=== PATIENT | female | born 1985 | race African-American/Black ===

== ENCOUNTER 2016-08-16 14:52 | Emergency (ER) | payer BC, OTHER ==
[~2016-08-16] VITALS: Ht 167.6 cm; Wt 60.0 kg
[~2016-08-16 14:52] MED LIST: FERR325C PO; QUIN5TAB15 PO
[2016-08-16 14:54] VITALS: Ht 167.6 cm; Wt 60.0 kg
[2016-08-16] MEDS ORDERED: SOD CHLORIDE 0.9% 1,000 ML IV STA (15:14)
--- NOTE | 2016-08-16 15:18 | ERD ---
ER Documentation Chief Complaint Date/Time DATE: 08/16/16 TIME: 15:17 Chief Complaint C/O [facility] LIGHT SENSITIVE HPI 30-year-old female complains of headache, dizziness that started around 8 AM this morning. Patient states that she was walking and then she had a throbbing headache that started suddenly it is diffuse in the frontal aspect, throbbing with photophobia. She has never had this headache before. She denies any blurry vision, nausea, vomiting. She denies any head trauma. No fevers or chills or neck stiffness. ROS All systems reviewed and are negative except as per history of present illness. Medications Home Meds Active Scripts Naproxen* (Naprosyn*) 500 Mg Tablet, 500 MG PO BID Y for PAIN AND/OR INFLAMMATION, #30 TAB Prov:KORI SHIELDS PA-C 08/16/16 Reported Medications Ferrous Sulfate (Iron) 325 Mg Capsr, 325 MG PO DAILY 08/31/15 Quinapril Hcl (Quinapril Hcl) 5 Mg Tablet, 5 MG PO DAILY, #60 TAB 08/31/15 Allergies Allergies: Coded Allergies: No Known Allergy (Unverified , 07/14/15) PMhx/Soc History of Surgery: Yes (APPY 2011) Anesthesia Reaction: No Hx Neurological Disorder: No Hx Respiratory Disorders: No Hx Cardiac Disorders: Yes (HTN, MITRAL VALVE PROLAPSE) Hx Psychiatric Problems: No Hx Miscellaneous Medical Probl: Yes (OVARIAN CYSTS) Hx Alcohol Use: Yes (OCC) Hx Substance Use: No Hx Tobacco Use: No Smoking Status: Never smoker Physical Exam Vitals Vital Signs Date Time Temp Pulse Resp B/P Pulse Ox O2 Delivery O2 Flow Rate FiO2 08/16/16 14:54 98.6 70 19 129/86 100 Physical Exam General: Well-developed, well-nourished. The patient appears in no acute distress. HEENT: Head is normocephalic, atraumatic. No scleral icterus. Pupils are equal , round, and reactive. Oral mucous membranes are moist. No pharyngeal erythema. Neck: Supple. Nontender. Lungs: Clear to auscultation. Normal air movement. Heart: Regular rate and rhythm. S1 and S2 are normal. No murmurs, gallops, or rubs. Abdomen: Soft, nontender, nondistended. Bowel sounds are normoactive. Extremities: No clubbing or cyanosis. Normal pulses. Moving extremities x 4. No weakness. Neurologic: Alert and oriented 3. No focal deficits. Skin: Normal turgor. No rash or lesions. Result Diagram: 08/16/16 1535 08/16/16 1535 Results 24 hrs Laboratory Tests Test 08/16/16 15:35 White Blood Count 6.710^3/ul Red Blood Count 4.7010^6/ul Hemoglobin 11.1g/dl Hematocrit 36.8% Mean Corpuscular Volume 78.3fl Mean Corpuscular Hemoglobin 23.6pg Mean Corpuscular Hemoglobin Concent 30.2g/dl Red Cell Distribution Width 15.9% Platelet Count 90373^3/UL Mean Platelet Volume 11.2fl Neutrophils % 73.5% Lymphocytes % 20.3% Monocytes % 5.5% Eosinophils % 0.3% Basophils % 0.3% Nucleated Red Blood Cells % 0.0/100WBC Neutrophils # 5.010^3/ul Lymphocytes # 1.410^3/ul Monocytes # 0.410^3/ul Eosinophils # 0.010^3/ul Basophils # 0.010^3/ul Nucleated Red Blood Cells # 0.010^3/ul Urine Color LT. YELLOW Urine Clarity CLEAR Urine pH 6.0 Urine Specific [place] 1.020 Urine Ketones 40 Urine Nitrite NEGATIVE Urine Bilirubin NEGATIVE Urine Urobilinogen 0.2 E.U./dL Urine Leukocyte Esterase NEGATIVE Urine Hemoglobin NEGATIVE Urine Glucose NEGATIVE% Urine Total Protein NEGATIVE Urine Test NEGATIVE Sodium Level 139mmol/L Potassium Level 3.5mmol/L Chloride Level 104mmol/L Carbon Dioxide Level 23mmol/L Anion Gap 16 Blood Urea Nitrogen 13mg/dl Creatinine 0.78mg/dl Glucose Level 73mg/dl Calcium Level 8.8mg/dl Total Bilirubin 0.4mg/dl Direct Bilirubin 0.00mg/dl Indirect Bilirubin 0.4mg/dl Aspartate Amino Transf (AST/SGOT) 24IU/L Alanine Aminotransferase (ALT/SGPT) 24IU/L Alkaline Phosphatase 65IU/L Total Protein 7.4g/dl Albumin 3.9g/dl Globulin 3.50g/dl Albumin/Globulin Ratio 1.11 Lipase 63U/L Current Medications Medications (Trade) Dose Ordered Sig/[place] Route PRN Reason Start Time Stop Time Status Last Admin Dose Admin Sodium Chloride (NS) 1,000 ml @ 1,000 mls/hr Q1H STAT IV 08/16/16 15:14 08/16/16 16:13 DC 08/16/16 15:34 Acetaminophen (Tylenol Tab) 650 mg ONCE ONCE PO 08/16/16 15:30 08/16/16 15:31 DC 08/16/16 15:33 Procedures/MDM ED course: IV line was established, blood and urine were obtained. She was given a fluid bolus of normal saline 1 L. She was given Tylenol 650 mg for pain. 12-lead EKG(interpreted by supervising physician): Dr. Morris Rate/Rhythm: Normal Sinus Rhythm, rate of 81 QRS, ST, T-waves: No changes consistent w/ acute ischemia, no intervals, no dysrhythmias, no ectopy Impression: No evidence of ischemia or arrhythmia MDM: 22-year-old female comes in with headache, dizziness, patient's workup including labs, EKG and CT scan of the head. Patient's labs look unremarkable, there is mild anemia, otherwise unremarkable. Patient's was negative and there is no evidence of urinary tract infection. EKG shows normal sinus rhythm. She was given a liter of fluids and Tylenol and states that she is feeling much better at this time. I really doubt subarachnoid hemorrhage. 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 I suspect a migraine headache versus atypical migraine, versus complex migraine. She was asked to continue Tylenol, she will also be given Naprosyn for pain at home. Departure Diagnosis: Primary Impression: Headache Condition: KORI Marroquin PA-C August 16, 2016 15:17
[2016-08-16] MEDS ORDERED: ACETAMINOPHEN 325 MG TAB PO ONE (15:30)
[2016-08-16 15:45] LABS: ADD SCAN DIFF NO
[2016-08-16 15:47] LABS: BASOPHILS % 0.3 % (0.0-2.0); EOSINOPHILS % 0.3 % (0.0-7.0); HEMATOCRIT 36.8 % (37.0-47.0); HEMOGLOBIN 11.1 g/dl (12.0-16.0); LYMPHOCYTES # 1.4 10^3/ul (0.8-2.9); LYMPHOCYTES % 20.3 % (15.0-51.0); MEAN CORPUSCULAR HEMOGLOBIN 23.6 pg (29.0-33.0); MEAN CORPUSCULAR HGB CONC 30.2 g/dl (32.0-37.0); MEAN CORPUSCULAR VOLUME 78.3 fl (82.0-101.0); MEAN PLATELET VOLUME 11.2 fl (7.4-10.4); MONOCYTE # 0.4 10^3/ul (0.3-0.9); MONOCYTES % 5.5 % (0.0-11.0); NEUTROPHILS % 73.5 % (39.0-77.0); PLATELET COUNT 234 10^3/UL (140-415); RED CELL DISTRIBUTION WIDTH 15.9 % (11.5-14.5); WHITE BLOOD COUNT 6.7 10^3/ul (4.8-10.8)
[2016-08-16 16:06] LABS: ALBUMIN/GLOBULIN RATIO 1.11
[2016-08-16 16:09] LABS: ALBUMIN 3.9 g/dl (3.3-4.9); BILIRUBIN,INDIRECT 0.4 mg/dl (0-1.1); BILIRUBIN,TOTAL 0.4 mg/dl (0.2-1.3); CALCIUM 8.8 mg/dl (8.4-10.2); CREATININE 0.78 mg/dl (0.44-1.00); POTASSIUM 3.5 mmol/L (3.5-5.1); TOTAL PROTEIN 7.4 g/dl (6.1-8.1)
--- NOTE | 2016-08-16 16:17 | RADRPT ---
AMENDMENT: 08/16/2016 4:41:17 PM Raheem Zurita M.d Findings and recommendation were discussed and acknowledged by Leeann Robledo on 08/16/2016 4:40 PM . PROCEDURE: CT Brain without. CLINICAL INDICATION: Headache, dizziness. TECHNIQUE: A CT of the brain was performed on multidetector high-resolution CT scanner utilizing a xial sections from the skull base through the vertex without contrast. The scan was reviewed in sof t tissue brain and high frequency resolution bone algorithm windows. Images were reviewed on a high -resolution PACS workstation. One or more the following does reduction techniques were utilized: Aut omated exposure control, adjustment of the mA/ or kV according to patient's size, or use of iterativ e reconstruction technique. The exam CTDI = 42.33 mGy and the DLP = 677.23 mGy-cm. COMPARISON: None available. FINDINGS: Mild cystic dilatation of the fourth ventricle is noted which extends posteriorly to prominent jose edian retrocerebellar CSF space. The ventricles and sulci are otherwise age-appropriate. There is no intracranial hemorrhage, mass ef fect or midline shift. No abnormal intra-axial or extra-axial fluid collections are seen. The gonzalez/ white matter differentiation is preserved. No acute skull abnormality is noted. The visualized paran joão sinuses are essentially clear. IMPRESSION: 1. Mild cystic dilatation of the fourth ventricle is noted which extends posteriorly to prominent pa ramedian retrocerebellar CSF space. Recommend follow-up MRI for further evaluation and to evaluate f or possible vermian hypoplasia. 2. No acute intracranial hemorrhage or transcortical infarction. RPTAT: HH .Raheem Zurita MD, MD Date Time Electronically viewed and signed by .Raheem Zurita MD, MD on 08/16/2016 16:43 .N/
[2016-08-16 16:21] LABS: ADD UMIC NO; URINE BILIRUBIN (Dip) NEGATIVE (NEGATIVE); URINE BLOOD (Dip) NEGATIVE (NEGATIVE); URINE COLOR LT. YELLOW (YELLOW); URINE GLUCOSE (Dip) NEGATIVE (NEGATIVE); URINE KETONES (Dip) 40 (NEGATIVE); URINE LEUKOCYTE ESTERASE (Dip) NEGATIVE (NEGATIVE); URINE NITRITE (Dip) NEGATIVE (NEGATIVE); URINE TOTAL PROTEIN (Dip) NEGATIVE (NEGATIVE); URINE UROBILINOGEN (Dip) 0.2 E.U./dL (0.1-1.0)
[2016-08-16] MEDS ORDERED: NAPR-260 PO (17:38)
[2016-08-16 18:06] VITALS: BP 129/69; PULSE 66; RESP 18; TEMP 98.6
== END 2016-08-16 18:10 | disposition home or self-care (01) ==
LOC: FTE 14:52
DX: R51 Headache (principal); I10 Essential (primary) hypertension
CPT/HCPCS: 36415; 70450; 80053; 81003; 83690; 84703; 85025; 93005; 99285; J7030